=== PATIENT | male | born 1990 | race Hispanic/Latino ===

== ENCOUNTER 2016-12-31 09:01 | Day surgery (SDC) | payer MEDICAID ==
[2016-12-31 09:45] VITALS: BMI 30.7
[2016-12-31] MEDS ORDERED: Propofol 10 mg/ml Inj (20 ML) ONE (11:03)
[2016-12-31] MEDS ORDERED: Midazolam 2 MG/2 ML VIAL ONE (11:03)
[2016-12-31] MEDS ORDERED: Lactated Ringer's 500 ML IV ONE (11:05)
[2016-12-31] MEDS ORDERED: Simethicone 40 mg/0.6 ml Liquid (30 ml) ONE (11:19)
[2016-12-31 11:56] VITALS: TEMP 98
[2016-12-31 12:20] VITALS: BP 120/58; PULSE 96; RESP 13; O2SAT 97
== END 2016-12-31 12:18 | disposition home or self-care (01) ==
LOC: C.ENDO 09:01
PROVIDERS: ATTEND Internal Medicine Gastroenterology
DX: K52.9 Noninfective gastroenteritis and colitis, unspecified (principal); K92.2 Gastrointestinal hemorrhage, unspecified
CPT/HCPCS: 43239; 45380; 87045; 87177; 87209; 87230; 88305; J2250; J2704; J7120